=== PATIENT | female | born 1945 | race Hispanic/Latino ===

== ENCOUNTER 2018-09-09 21:53 | Emergency (ER) | payer MEDICARE ==
[~2018-09-09] VITALS: Ht 165.1 cm; Wt 90.7 kg
--- NOTE | 2018-09-09 23:05 | Diagnostic Imaging Report ---
KNEE 3VW LT - [facility] HISTORY: Fall. Pain. COMPARISON: None available. FINDINGS: Bones: No acute displaced fracture. Superior patellar enthesophyte. Osseous alignment is within normal limits. Joints: The joint spaces are well-maintained. Soft tissues: The soft tissues appear unremarkable. IMPRESSION: No acute radiographic abnormality. Signed by: DR. Sunil Kraft MD on 09/09/2018 11:01 PM
--- NOTE | 2018-09-09 23:06 | Diagnostic Imaging Report ---
SHOULDER 2+VW LT -HOPD HISTORY: Fall. Pain. COMPARISON: None available. FINDINGS: Bones: No acute displaced fracture. Osseous alignment is within normal limits. Joints: The joint spaces are well-maintained. Soft tissues: The soft tissues appear unremarkable. IMPRESSION: No acute radiographic abnormality. Signed by: DR. Sunil Kraft MD on 09/09/2018 11:02 PM
[2018-09-09] MEDS ORDERED: OMEPRAZOLE40 MG PO (23:22)
--- NOTE | 2018-09-10 00:21 | Diagnostic Imaging Report ---
Exams: Head and cervical spine CTs without IV contrast History: Fall, pain Comparison studies: None Technique: Axial images were obtained from the brain and cervical spine. Coronal and sagittal images reconstructed from the axial data. Dose modulation, iterative reconstruction, and/or weight based adjustment of the mA/kV was utilized to reduce the radiation dose to as low as reasonably achievable. Intravenous contrast: None Findings: Head CT: Scalp: No abnormalities. Bones: No fractures, blastic or lytic lesions. Extra-axial spaces: No masses. No fluid collections. Brain sulci: Appropriate for age. Ventricles: Normal in size and configuration. No hydrocephalus. Parenchyma: No mass, acute hemorrhage or acute cortical vascular insults. A few scattered hypodensities in the supratentorial white matter are nonspecific but most compatible with chronic small vessel ischemic changes. Sellar/suprasellar region: No abnormalities. Craniocervical junction: The foramen magnum is patent. No Chiari one malformation. Cervical spine CT: Fractures: None. Soft tissues: No gross abnormalities. Atlantoaxial articulation: Intact. Alignment: Mild kyphotic cervical curvature with 2 mm degenerative anterolisthesis of C6 on C7. Cervicomedullary junction: No abnormalities. The foramen magnum is patent. Vertebrae: No infection or neoplasm. Degenerative changes: Multilevel disc degeneration, moderate at C3-4 and at C4-C5 and severe C5-C6 with associated degenerative endplate changes and disc osteophyte complexes which result in at least mild canal stenosis at these levels. Multilevel uncovertebral and facet arthrosis result in multilevel foraminal stenosis (mild to moderate right at C2-C3 and severe bilaterally from C3 to C6). Minimal anterolisthesis of C6 on C7 with associated uncovered disc and facet arthrosis result in severe bilateral foraminal stenosis. Incidental findings: * Atherosclerotic calcifications in the carotid bulbs and in the carotid siphons. * 9 mm calcified nodule in the left upper thyroid lobe. * Subcentimeter calcified left paratracheal and left level IV lymph nodes. * Degenerative changes at the right TMJ. IMPRESSION: Head CT: 1. No acute abnormalities. 2. Mild chronic microvascular ischemic changes. Cervical spine CT: 1. No cervical spine fracture or acute subluxation. 2. Moderate multilevel degenerative changes as described. 3. Cannot exclude ligament, spinal cord and or vascular abnormalities on the basis of this examination. Signed by: Dr. Uriel Matthews M.D. on 09/10/2018 12:18 AM
[2018-09-10] MEDS ORDERED: GLIPIZIDE5 MG PO (00:49)
[2018-09-10] MEDS ORDERED: ATORVASTATIN CA20 MG PO (00:51)
[2018-09-10] MEDS ORDERED: NEXIUM20 MG (01:17)
[2018-09-10] MEDS ORDERED: AMLODIPINE BESYL5 MG PO (01:17)
[2018-09-10] MEDS ORDERED: LOSARTAN-HCTZ1 EAC2 (01:17)
[2018-09-10 01:18] VITALS: BP 189/80
== END 2018-09-10 00:35 | disposition home or self-care (01) ==
LOC: FSED 21:53
DX: S00.83XA Contusion of other part of head, initial encounter (principal); S40.012A Contusion of left shoulder, initial encounter; S80.02XA Contusion of left knee, initial encounter; S16.1XXA Strain of muscle, fascia and tendon at neck level, initial encounter; W18.30XA Fall on same level, unspecified, initial encounter; Y92.512 Supermarket, store or market as the place of occurrence of the external cause
CPT/HCPCS: 70450; 72125; 99283